=== PATIENT | female | born 1995 | race Asian ===

== ENCOUNTER → 2025-06-25 10:43 | Outpatient (CLI) | payer OTHER, SELFPAY ==
[2025-06-25 11:23] LABS: Hemoglobin A1C% w Est Avg Glu 5.8 % (4.0-6.0)
[2025-06-25 11:47] LABS: Cholesterol 192 mg/dL (140-199); HDL Cholesterol 41 mg/dL (40-60); Triglycerides 148 mg/dL (35-150)
== END ==
PROVIDERS: PCP Family Medicine; Referring Provider Family Medicine; Visit Provider Family Medicine
DX: E78.5 Hyperlipidemia, unspecified (principal); Z13.1 Encounter for screening for diabetes mellitus
CPT/HCPCS: 36415; 80061; 83036